=== PATIENT | female | born 1965 | race Caucasian/White ===

== ENCOUNTER → 2016-05-26 | Outpatient (CLI) | payer OTHER ==
[~2016-05-26] MED LIST: ADULT MULTIVIT1 EACH PO; ADVIL200 MG PO; CRESTOR20 MG PO; LINZESS290 MCG PO; MIRALAX17 GM PO; TRULICITY0.75 MG/0. SUB-Q
== END | disposition disaster alternative care site (69) ==
LOC: GRAD 15:14
DX: H92.09 Otalgia, unspecified ear (principal)

== ENCOUNTER → 2016-06-09 | Day surgery (SDC) | payer OTHER ==
[~2016-06-09] VITALS: Ht 170.2 cm; Wt 87.9 kg
== END ==
LOC: GPOC 06-02 11:00 → GEND 08:43 → GPOC 11:00
PROC: 0DB68ZX Excision of Stomach, Via Natural or Artificial Opening Endoscopic, Diagnostic (ICD-10-PCS; principal; 2016-06-09)
PROC: 0DJD8ZZ Inspection of Lower Intestinal Tract, Via Natural or Artificial Opening Endoscopic (ICD-10-PCS; 2016-06-09)
DX: Z12.11 Encounter for screening for malignant neoplasm of colon (principal); K29.50 Unspecified chronic gastritis without bleeding; K20.9 Esophagitis, unspecified; K64.9 Unspecified hemorrhoids; K59.09 Other constipation; E11.9 Type 2 diabetes mellitus without complications; Z87.19 Personal history of other diseases of the digestive system; Z79.899 Other long term (current) drug therapy; Z98.84 Bariatric surgery status; Z79.4 Long term (current) use of insulin
CPT/HCPCS: J2001; J7030

== ENCOUNTER → 2016-06-16 | Outpatient (CLI) | payer OTHER | END | disposition disaster alternative care site (69) | LOC: GRAD 14:30 | DX: M26.622 Arthralgia of left temporomandibular joint (principal); M54.2 Cervicalgia; G89.29 Other chronic pain; M25.512 Pain in left shoulder; M50.81 Other cervical disc disorders, high cervical region; M47.812 Spondylosis without myelopathy or radiculopathy, cervical region | CPT/HCPCS: A9576 ==